=== PATIENT | female | born 1950 | race Two or more races ===

== ENCOUNTER → 2017-02-23 | Day surgery (SDC) | payer BC ==
[~2017-02-23] MED LIST: ATOR20TA58 PO; ESOM20CA PO; FLUO20CA16 PO; IV RINGERS,LACTATED 1000ML 1,000 ML IV SCH; LEVO25TA4 PO; LIDOCAINE 2% PF Vial for OR 5 ML VIAL. ONE; LOSA25TA4 PO; PROPOFOL 40 ML IV ONE; TOPI50TA38 PO
--- NOTE | 2017-02-23 09:00 | PDOC1 ---
HISTORY & PHYSICAL H&P Fernanda Bass [id number] 1950 02/11/2017 01:40 PM 04/26 [facility], [facility] [address] [place] [id number] Ph. [phone] Patient: Fernanda Bass Date of : 1950 Date: 02/11/2017 1:40 PM Visit Type: Consult This 66 year old female presents for Loose stools and Screening colonoscopy. History of Present Illness: 1. Loose stools Patient has been having some loose stool about 3 to 4 every day. No abdominal pain. No rectal bleeding. No fever. Never had prior colonoscopy. 2. Screening colonoscopy No prior screening. Denies risk factors. Associated symptoms include diarrhea. Pertinent negatives include abdominal pain, change in bowel habits, change in stool caliber, constipation, decreased appetite, melena, nausea, rectal bleeding, vomiting, weight gain and weight loss. Additional information : No family history of colon cancer, No family history of Crohn's/colitis, No NSAID/ASA use and Never had colonoscopy before. INTAKE COMMENTS: Intake Comments: Referred by Dr. Jaeger: c/o of loose stools in AM for past 3 months. No change in diet. Denies abd pain, n/v . Denies blood in stool. No history of colonoscopy PROBLEM LIST: Problem Description Onset Date Chronic Notes Hypothyroidism (acquired) 07/02/2015 Recurrent major depressive disorder, in partial remission 07/02/2015 Hyperlipidemia LDL goal <100 07/02/2015 HTN (hypertension), benign 07/02/2015 Contact dermatitis and eczema 10/07/2015 PAST MEDICAL/SURGICAL HISTORY (Detailed) Disease/disorder Onset Date Management Date Comments Hysterectomy, total Cholecystectomy High cholesterol Medications (Active): Started Medication Directions Instruction Stopped 10/06/2016 atorvastatin 20 mg tablet TAKE 1 TABLET BY MOUTH EVERY DAY 10/06/2016 levothyroxine 25 mcg tablet TAKE 1 TABLET BY MOUTH DAILY 10/06/2016 losartan 25 mg tablet TAKE 1 TABLET BY MOUTH EVERY DAY 01/07/[address] 20 MG CAPSULE TAKE ONE CAPSULE BY MOUTH EVERY DAY 10/06/2016 Prozac 20 mg capsule take 1 capsule by oral route every day in the morning 10/06/2016 Topamax 50 mg tablet TAKE 1 TABLET BY MOUTH TWICE A DAY Allergies: Ingredient Reaction Medication Name Comment CODEINE Discomfort REVIEW OF SYSTEMS System Neg/Pos Details Constitutional Negative Chills, fever, malaise, weight gain and weight loss. ENMT Negative Sore throat. Eyes Negative Double vision. Respiratory Negative Dyspnea and wheezing. Cardio Negative Chest pain and irregular heartbeat/palpitations. GI Positive Diarrhea, See HPI. GI Negative Abdominal pain, change in bowel habits, change in stool caliber, constipation, decreased appetite, melena, nausea, see HPI, rectal bleeding and vomiting. Negative Dysuria and hematuria. Endocrine Negative Cold intolerance and heat intolerance. Psych Negative Anxiety. Integumentary Negative Hives and rash. MS Negative Joint pain. Jax/Lymph Negative Easy bleeding and easy bruising. Allergic/Immuno Negative Food allergies. VITAL SIGNS Time BP mm/Hg Pulse /min Resp /min Temp F Ht ft Ht in Ht cm Wt lb Wt kg BMI kg/ m2 BSA m2 O2 Sat% 2:13 PM 112/60 89 20 98.2 5.0 2.00 157.48 195.80 88.813 35.81 95 Time Measured by 2:13 PM Sandy Herzog PHYSICAL EXAM: Exam Findings Details Constitutional Normal Well developed. Eyes Normal Conjunctiva - Right: Normal, Left: Normal. Sclera - Right: Normal, Left: Normal. Nasopharynx Normal Lips/teeth/gums - Normal. Neck Exam Normal Inspection - Normal. Thyroid gland - Normal. Respiratory Normal Inspection - Normal. Auscultation - Normal. Cardiovascular Normal Regular rate and rhythm. No murmurs, gallops, or rubs. Vascular Normal Pulses - Carotids: Normal, Femoral: Normal, Dorsalis pedis: Normal. Abdomen Normal Inspection - Normal. Anterior palpation - No guarding. No abdominal tenderness. No hepatic enlargement. No splenic enlargement. No hernia. No Ascites. Skin Normal Inspection - Normal. Extremity Normal No edema. Psychiatric Normal Oriented to time, place, person, and situation. Appropriate mood and effect. Assessment/Plan # Detail Type Description 1. Assessment Functional diarrhea (K59.1). Patient Plan Await colonoscopy result. 2. Assessment Encounter for screening colonoscopy (Z12.11). Patient Plan schedule colonoscopy at Plan Orders Further diagnostic evaluations ordered today include(s) Colonoscopy to be performed today. She is to schedule a follow-up visit with Corbin Cowan MD upon completion of work-up Electronically signed by: Corbin Cowan MD 02/11/2017 02:32 PM Document generated by: Corbin Cowan 02/11/2017 02:32 PM Poncho Rod MD, Family Practice; Param Schmid MD Internal Medicine; Alonso Jaeger MD, Internal Medicine; Arlette Cowan MD Internal Medicine; Corbin Cowan MD, Gastroenterology; Jonathon Jiménez MD, Rheumatology, S. Sherif Fuchs, Physical Medicine/Rehab J. Layton SERRA ------ 02/23/17 Patient seen and examined. No change in H&P. CORBIN COWAN MD Feb 23, 2017 09:00
[2017-02-23 11:05] VITALS: BP 114/67
== END | disposition home or self-care (01) ==
LOC: SURG 08:53
PROVIDERS: ATTEND Internal Medicine Gastroenterology
DX: K57.30 Diverticulosis of large intestine without perforation or abscess without bleeding (principal); E78.00 Pure hypercholesterolemia, unspecified; E03.9 Hypothyroidism, unspecified; F32.9 Major depressive disorder, single episode, unspecified; I10 Essential (primary) hypertension; Z90.710 Acquired absence of both cervix and uterus; Z98.890 Other specified postprocedural states; Z88.8 Allergy status to other drugs, medicaments and biological substances
CPT/HCPCS: 45378; J2704; J2001

== ENCOUNTER → 2017-11-30 | Outpatient (CLI) | payer OTHER | END | disposition home or self-care (01) | LOC: KCIC DEXA 07:59 | DX: Z12.31 Encounter for screening mammogram for malignant neoplasm of breast (principal); N63.13 Unspecified lump in the right breast, lower outer quadrant; R89.1 Abnormal level of hormones in specimens from other organs, systems and tissues; I10 Essential (primary) hypertension; E03.9 Hypothyroidism, unspecified | CPT/HCPCS: 77063; 77067; 77080 ==

== ENCOUNTER → 2017-12-07 | Outpatient (CLI) | payer OTHER ==
[2017-02-23 11:05] VITALS: BP 114/67
[~2017-12-07] MED LIST changes: -IV RINGERS,LACTATED 1000ML 1,000 ML IV SCH; -LIDOCAINE 2% PF Vial for OR 5 ML VIAL. ONE; -PROPOFOL 40 ML IV ONE
--- NOTE | 2017-12-07 13:38 | KCIC ---
Right breast ultrasound: Reason for examination: Nodular density on screening mammogram. Comparison is made to mammographic examination dated 11/30/2017. Ultrasound examination of the right breast was performed in the area of mammographic concern and at the right axilla. At the 7:00 position 6 cm from the nipple and corresponding to the area of mammographic concern, there is a hypoechoic circumscribed lesion in parallel orientation measuring approximately 7.1 mm in greatest dimension. The appearance would be consistent with a fibroadenoma. No other focal cystic or solid lesions are seen. No abnormal appearing lymph nodes are seen in the left axilla. 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 Recommend reevaluation with ultrasound in 3 months. BI-RADS Category 3: Probably Benign. "Our facility is accredited by the [employer] Mammography Program." This patient's information has been entered into a reminder system for the patient to be notified with the results of her examination and a target date for the next mammogram. Electronically signed by: Latoya Lord MD (12/07/2017 1:34 PM) [id number]
== END | disposition home or self-care (01) ==
LOC: KCIC US 12:39
PROVIDERS: ATTEND Internal Medicine
DX: R92.8 Other abnormal and inconclusive findings on diagnostic imaging of breast (principal); I10 Essential (primary) hypertension; E78.00 Pure hypercholesterolemia, unspecified; E03.9 Hypothyroidism, unspecified; Z88.8 Allergy status to other drugs, medicaments and biological substances
CPT/HCPCS: 76641